=== PATIENT | female | born 1935 | race Caucasian/White ===

== ENCOUNTER → 2017-12-12 | Outpatient (CLI) | payer OTHER, MEDICARE ==
[~2017-12-12] MED LIST: APAP500 PO; FENTANYL PA12 MCG/HR TP; LIPITOR 20 MG T20 M1 PO; LOSARTAN POTAS100 MG PO; MOBIC7.5 MG PO; NORVASC5 MG PO; PREDNISONE 1 MG1 M1 PO; TRAMADOL 50 MG50 MG PO
== END ==
LOC: RAD 10:52
DX: M47.24 Other spondylosis with radiculopathy, thoracic region (principal); M47.26 Other spondylosis with radiculopathy, lumbar region; M41.84 Other forms of scoliosis, thoracic region; M41.86 Other forms of scoliosis, lumbar region